=== PATIENT | female | born 1940 | race Caucasian/White ===

== ENCOUNTER → 2017-10-12 | Outpatient (CLI) | payer OTHER | END | disposition home or self-care (01) | LOC: OIH 13:21 | PROVIDERS: ATTEND Family Medicine | DX: R07.81 Pleurodynia (principal) | CPT/HCPCS: 71100 ==

== ENCOUNTER → 2017-10-26 | Outpatient (CLI) | payer OTHER | END | disposition home or self-care (01) | LOC: RAH 09:42 | PROVIDERS: ATTEND Family Medicine | DX: Z12.31 Encounter for screening mammogram for malignant neoplasm of breast (principal) | CPT/HCPCS: 77067 ==

== ENCOUNTER → 2018-10-08 | Outpatient (CLI) | payer OTHER | END | disposition home or self-care (01) | LOC: RAH 09:10 | PROVIDERS: ATTEND Physical Medicine & Rehabilitation | DX: N28.1 Cyst of kidney, acquired (principal); I70.0 Atherosclerosis of aorta | CPT/HCPCS: 74021; 76700 ==

== ENCOUNTER → 2019-03-30 | Outpatient (CLI) | payer OTHER | END | disposition home or self-care (01) | LOC: RAH 13:03 | PROVIDERS: ATTEND Family Medicine | DX: Z12.31 Encounter for screening mammogram for malignant neoplasm of breast (principal) | CPT/HCPCS: 77067 ==

== ENCOUNTER → 2019-08-31 | Outpatient (CLI) | payer OTHER | END | disposition home or self-care (01) | LOC: RAH 09:40 | PROVIDERS: ATTEND Physical Medicine & Rehabilitation | DX: M19.012 Primary osteoarthritis, left shoulder (principal); M75.112 Incomplete rotator cuff tear or rupture of left shoulder, not specified as traumatic | CPT/HCPCS: 73030 ==

== ENCOUNTER → 2019-11-01 | Outpatient (CLI) | payer OTHER ==
[~2019-11-01] MED LIST: IOHEXOL-350 50ML VIAL IV ONE
== END | disposition home or self-care (01) ==
LOC: RAH 12:32
PROVIDERS: ATTEND Physical Medicine & Rehabilitation
DX: R22.2 Localized swelling, mass and lump, trunk (principal)
CPT/HCPCS: 71270; Q9967

== ENCOUNTER → 2020-09-12 | Outpatient (CLI) | payer OTHER | END | disposition home or self-care (01) | LOC: RAH 14:28 | PROVIDERS: ATTEND Family Medicine | DX: Z12.31 Encounter for screening mammogram for malignant neoplasm of breast (principal); N64.89 Other specified disorders of breast | CPT/HCPCS: 77067 ==

== ENCOUNTER → 2020-09-19 | Outpatient (CLI) | payer OTHER | END | disposition home or self-care (01) | LOC: RAH 09:39 | PROVIDERS: ATTEND Physical Medicine & Rehabilitation | DX: M43.17 Spondylolisthesis, lumbosacral region (principal); M51.26 Other intervertebral disc displacement, lumbar region; M48.061 Spinal stenosis, lumbar region without neurogenic claudication | CPT/HCPCS: 72148 ==

== ENCOUNTER 2021-03-08 15:18 | Inpatient (IN) | payer OTHER ==
[~2021-03-08] VITALS: Ht 165.1 cm; Wt 57.8 kg
[~2021-03-08 15:18] MED LIST changes: +ENTR200C PO; +FAMO40TA75 PO; +FERR-72 PO; +GABA600T10 PO; -IOHEXOL-350 50ML VIAL IV ONE; +ONDA4TAB4 PO; +POLY17PO4 PO
[2021-03-08 15:28] VITALS: BP 137/47
[2021-03-08] MEDS ORDERED: HALOPERIDOL INJ 5 MG/ML VIAL IM SCH (16:30)
[2021-03-08 16:57] LABS: APPEARANCE,URINE Clear (CLEAR); BILIRUBIN,URINE Negative (NEGATIVE); COLOR,URINE Yellow (YELLOW); GLUCOSE, URINE (UA) Negative (NEGATIVE); KETONES,URINE Negative (NEGATIVE); LEUKOCYTE ESTERASE ,URINE Negative (NEGATIVE); NITRATE,URINE Negative (NEGATIVE); OCCULT BLOOD,URINE Moderate (NEGATIVE); PH,URINE 5.5 (5.0-8.0); PROTEIN,URINE POS 1+ mg/dL (NEGATIVE); UROBILINOGEN,URINE 0.2 mg/dL (0.2-1.0)
[2021-03-08 17:04] LABS: BACTERIA,URINE Few /HPF (None Seen); HYALINE CASTS, URINE 0-1 /LPF (0-1 /LPF); MUCUS,URINE Rare LPF (None Seen); RBC,URINE 0-1 /HPF (0-1); SQUAMOUS EPITHELIAL CELL,UR Rare /HPF (0-2); WBC,URINE 0-1 /HPF (0-1)
[2021-03-08 17:05] LABS: AMPHET/METH SCREEN,URINE NEGATIVE (NEGATIVE); BARBITURATE SCREEN, URINE NEGATIVE (NEGATIVE); BENZODIAZEPINES SCREEN,URINE NEGATIVE (NEGATIVE); CANNABINOID SCREEN,URINE NEGATIVE (NEGATIVE); COCAINE SCREEN,URINE NEGATIVE (NEGATIVE); OPIATE SCREEN,URINE NEGATIVE (NEGATIVE); PHENCYCLIDINE SCREEN,URINE NEGATIVE (NEGATIVE)
[2021-03-08 17:12] LABS: BASOPHILS % (AUTO) 0.4 % (0.0-5.0); EOSINOPHILS % (AUTO) 1.6 % (0.0-8.0); HEMATOCRIT 22.3 % (36-48); LYMPHOCYTES % (AUTO) 8.4 % (21.0-51.0); MEAN CORPUSCULAR HEMOGLOBIN 28.5 pg (27.0-33.0); MEAN CORPUSCULAR HGB CONC 30.9 g/dL (32.0-36.0); MEAN CORPUSCULAR VOLUME 92.1 fL (79-99); NEUTROPHILS % (AUTO) 83.4 % (40.0-77.0); PLATELET COUNT (AUTO) 464 K/uL (130-400); RED BLOOD CELL COUNT(AUTO) 2.42 MIL/uL (4.00-5.50); RED CELL DISTRIBUTION WIDTH 18.8 % (11.0-15.5); WHITE BLOOD COUNT (AUTO) 9.6 K/uL (4.8-10.8)
[2021-03-08 17:18] VITALS: BP 137/47
[2021-03-08 17:27] LABS: CARBON DIOXIDE 27 mmol/L (21-32); CHLORIDE 105 mmol/L (101-111); CREATININE 2.6 mg/dL (0.5-1.5); GLUCOSE,RANDOM 103 mg/dL (70-105); POTASSIUM 3.8 mmol/L (3.5-5.1); SODIUM SERUM 142 mmol/L (136-145); UREA NITROGEN, BLOOD 49 mg/dL (7-18)
[2021-03-08 17:28] LABS: GLOMERULAR FILTR. RATE CALC 19 mL/min (>60)
[2021-03-08 17:34] LABS: ALANINE AMINOTRANSFERASE 40 U/L (12-78); ALBUMIN 2.9 g/dL (3.5-5.0); ALCOHOL, BLOOD < 3 mg/dL (0-10); AMMONIA 22 umol/L (11-32); ASPARTATE AMINOTRANSFERASE 68 U/L (10-37); BILIRUBIN,TOTAL 0.3 mg/dL (0.2-1.0); TOTAL PROTEIN, SERUM 6.8 g/dL (6.0-8.3)
[2021-03-08 17:37] LABS: ACETAMINOPHEN < 1 mcg/mL (10-30); SALICYLATE < 2.8 mg/dL (2.8-20.0)
[2021-03-08 17:42] LABS: B-TYPE NATRIURETIC PEPTIDE 348 pg/mL (0-100)
[2021-03-08] MEDS ORDERED: 0.9%NACL 1000ML 1,000 ML IV ONE (18:00)
[2021-03-08 18:38] VITALS: BP 138/52
[2021-03-08 19:05] VITALS: BP 88/37
[2021-03-08 19:57] VITALS: BP 88/38
[2021-03-08] MEDS ORDERED: ACETAMINOPHEN 325 MG TAB PO PRN (20:00)
[2021-03-09] VITALS (20 sets, daily range): BP systolic 74–129; BP diastolic 28–67
[2021-03-09 01:48] LABS: HEMATOCRIT 26.1 % (36-48)
[2021-03-09] MEDS: NOREPINEPHRINE 4MG/NS 250ML 250 ML IV SCH ×2 (02:09→08:42)
[2021-03-09] MEDS ORDERED: ALBUMIN (HUMAN) 25% 100 ML IV PRN (05:00)
[2021-03-09 07:56] LABS: HEMATOCRIT 28.6 % (36-48); MEAN CORPUSCULAR HEMOGLOBIN 28.5 pg (27.0-33.0); MEAN CORPUSCULAR HGB CONC 32.2 g/dL (32.0-36.0); MEAN CORPUSCULAR VOLUME 88.5 fL (79-99); RED BLOOD CELL COUNT(AUTO) 3.23 MIL/uL (4.00-5.50); RED CELL DISTRIBUTION WIDTH 18.4 % (11.0-15.5); WHITE BLOOD COUNT (AUTO) 9.4 K/uL (4.8-10.8)
[2021-03-09 08:20] LABS: ALBUMIN 2.8 g/dL (3.5-5.0); BILIRUBIN,TOTAL 0.5 mg/dL (0.2-1.0); CREATININE 2.4 mg/dL (0.5-1.5); POTASSIUM 4.1 mmol/L (3.5-5.1); TOTAL PROTEIN, SERUM 6.4 g/dL (6.0-8.3)
[2021-03-09] MEDS ORDERED: VASOPRESSIN 20 UNITS/ML 1ML VIAL ONE (08:48)
[2021-03-09] MEDS ORDERED: 0.9%NACL 100ML 100 ML ONE (08:49)
[2021-03-09] MEDS ORDERED: FAMOTIDINE 20MG TAB PO SCH (09:00)
[2021-03-09] MEDS: VASOPRESSIN 20 UNITS in 0.9%NACL 100ML 100 ML IV SCH (09:24)
[2021-03-09] MEDS ORDERED: VANCOMYCIN PROTOCOL PER PHARMACY IV SCH (13:00)
[2021-03-09] MEDS ORDERED: 0.9%NACL 1000ML 1,000 ML IV SCH (13:00)
[2021-03-09] MEDS ORDERED: RENAL DOSE IV SCH (13:00)
[2021-03-09] MEDS: 0.9%NACL 1000ML 1,000 ML IV SCH ×2 (13:11→13:23)
[2021-03-09] MEDS: MEROPENEM 500 MG VIAL IVP SCH (13:21)
[2021-03-09 13:53] LABS: CREATININE,URINE RANDOM 43 mg/dL (30-135); SODIUM,URINE RANDOM 80 mmol/l (40-220)
[2021-03-09] MEDS ORDERED: VANCOMYCIN 1G/250ML KIT 250 ML IV SCH (14:00)
[2021-03-09 16:40] LABS: HEMATOCRIT 28.2 % (36-48)
[2021-03-09 17:51] LABS: CREATININE 2.4 mg/dL (0.5-1.5); POTASSIUM 4.1 mmol/L (3.5-5.1)
[2021-03-09] MEDS ORDERED: ALPRAZOLAM 1 MG TAB ONE (19:18)
[2021-03-09] MEDS: ALPRAZOLAM 0.25 MG TABLET PO PRN (19:42)
[2021-03-09 21:33] LABS: HEMATOCRIT 27.7 % (36-48)
[2021-03-09] MEDS: PANTOPRAZOLE 40 MG/VIAL IVP SCH (21:47)
[2021-03-10] VITALS (19 sets, daily range): BP systolic 55–125; BP diastolic 35–56
[2021-03-10] MEDS ORDERED: LORAZEPAM 2 MG/ML 1 ML VIAL IVP ONE (00:30)
[2021-03-10] MEDS ORDERED: LORAZEPAM 2 MG/ML 1 ML VIAL ONE (00:34)
[2021-03-10] MEDS: MEROPENEM 500 MG VIAL IVP SCH ×2 (01:54→13:28)
[2021-03-10 06:06] LABS: BASOPHILS % (AUTO) 0.5 % (0.0-5.0); EOSINOPHILS % (AUTO) 1.5 % (0.0-8.0); HEMATOCRIT 27.7 % (36-48); LYMPHOCYTES % (AUTO) 11.4 % (21.0-51.0); MEAN CORPUSCULAR HEMOGLOBIN 28.3 pg (27.0-33.0); MEAN CORPUSCULAR HGB CONC 30.3 g/dL (32.0-36.0); MEAN CORPUSCULAR VOLUME 93.3 fL (79-99); MONOCYTES % (AUTO) 4.6 % (3.0-13.0); NEUTROPHILS % (AUTO) 81.4 % (40.0-77.0); PLATELET COUNT (AUTO) 421 K/uL (130-400); RED BLOOD CELL COUNT(AUTO) 2.97 MIL/uL (4.00-5.50); RED CELL DISTRIBUTION WIDTH 18.8 % (11.0-15.5); WHITE BLOOD COUNT (AUTO) 9.7 K/uL (4.8-10.8)
[2021-03-10 06:20] LABS: % IRON SATURATION 22.4 % (22-44)
[2021-03-10 07:32] LABS: ALBUMIN 2.9 g/dL (3.5-5.0); BILIRUBIN,TOTAL 0.4 mg/dL (0.2-1.0); CREATININE 2.1 mg/dL (0.5-1.5); POTASSIUM 4.3 mmol/L (3.5-5.1); THYROID STIMULATING HORMONE 1.24 uIU/mL (0.36-3.74); TOTAL PROTEIN, SERUM 6.4 g/dL (6.0-8.3)
[2021-03-10] MEDS: PANTOPRAZOLE 40 MG/VIAL IVP SCH ×2 (08:12→20:47)
[2021-03-10 09:20] LABS: HEMATOCRIT 28.3 % (36-48)
[2021-03-10] MEDS: HYDROCORTISONE SOD SUCCINATE 100 MG/2 ML VIAL IV SCH ×2 (10:07→17:16)
[2021-03-10] MEDS: MIDODRINE HCL 5 MG TABLET PO SCH ×2 (13:28→20:47)
[2021-03-10] MEDS ORDERED: COMPOUND IV MISC 1 EACH IVSOLN MISC PRN (13:30)
[2021-03-10] MEDS: IRON SUCROSE COMPLEX 100 MG in 0.9%NACL 50ML 50 ML IV SCH (14:31)
[2021-03-10 15:01] LABS: HEMATOCRIT 25.7 % (36-48)
[2021-03-10] MEDS ORDERED: VASOPRESSIN 20 UNITS/ML 1ML VIAL ONE (15:19)
[2021-03-10] MEDS: VASOPRESSIN 20 UNITS in 0.9%NACL 100ML 100 ML IV SCH (15:40)
[2021-03-10 21:29] LABS: HEMATOCRIT 29.7 % (36-48)
[2021-03-10] MEDS: ALPRAZOLAM 0.25 MG TABLET PO PRN (21:59)
[2021-03-11] VITALS (17 sets, daily range): BP systolic 65–143; BP diastolic 30–87
[2021-03-11] MEDS ORDERED: LORAZEPAM 2 MG/ML 1 ML VIAL ONE (02:24)
[2021-03-11] MEDS ORDERED: LORAZEPAM 2 MG/ML 1 ML VIAL IVP ONE (02:30)
[2021-03-11] MEDS: MEROPENEM 500 MG VIAL IVP SCH ×2 (02:34→15:07)
[2021-03-11] MEDS: HYDROCORTISONE SOD SUCCINATE 100 MG/2 ML VIAL IV SCH ×3 (02:34→17:45)
[2021-03-11] MEDS ORDERED: PROPOFOL 10 MG/ML 20ML VIAL IV ONE (07:49)
[2021-03-11] MEDS ORDERED: LIDOCAINE PF 100MG/5ML (2%) SYRINGE 5ML ONE (07:49)
[2021-03-11] MEDS: MIDODRINE HCL 5 MG TABLET PO SCH ×3 (09:00→21:00)
[2021-03-11] MEDS: PANTOPRAZOLE 40 MG/VIAL IVP SCH ×2 (09:14→21:22)
[2021-03-11 09:51] LABS: BASOPHILS % (AUTO) 0.3 % (0.0-5.0); EOSINOPHILS % (AUTO) 1.6 % (0.0-8.0); HEMATOCRIT 26.2 % (36-48); MEAN CORPUSCULAR HEMOGLOBIN 28.5 pg (27.0-33.0); MEAN CORPUSCULAR HGB CONC 31.7 g/dL (32.0-36.0); NEUTROPHILS % (AUTO) 82.4 % (40.0-77.0); PLATELET COUNT (AUTO) 477 K/uL (130-400); RED BLOOD CELL COUNT(AUTO) 2.91 MIL/uL (4.00-5.50); RED CELL DISTRIBUTION WIDTH 18.6 % (11.0-15.5); WHITE BLOOD COUNT (AUTO) 10.5 K/uL (4.8-10.8)
[2021-03-11 10:08] LABS: ALBUMIN 2.7 g/dL (3.5-5.0); BILIRUBIN,TOTAL 0.3 mg/dL (0.2-1.0); CREATININE 1.8 mg/dL (0.5-1.5); POTASSIUM 3.9 mmol/L (3.5-5.1); TOTAL PROTEIN, SERUM 6.3 g/dL (6.0-8.3)
[2021-03-11] MEDS ORDERED: PHARMACY COMMUNICATION MISC SCH (11:00)
[2021-03-11] MEDS: DEXTROSE 5%-WATER 1,000 ML IV SCH (11:59)
[2021-03-11] MEDS ORDERED: 0.9%NACL 50ML 50 ML IV ONE (14:46)
[2021-03-11 15:20] LABS: HEMATOCRIT 27.1 % (36-48)
[2021-03-11 15:35] LABS: INR 1.03 (0.85-1.15); PROTHROMBIN TIME 11.2 SEC (9.6-11.6)
[2021-03-11 15:36] LABS: PARTIAL THROMBOPLASTIN TIME 26.4 SEC (26.3-35.5)
[2021-03-11] MEDS: DRONABINOL 2.5 MG CAP PO SCH (15:51)
[2021-03-11] MEDS: IRON SUCROSE COMPLEX 100 MG in 0.9%NACL 50ML 50 ML IV SCH (15:53)
[2021-03-11] MEDS ORDERED: NOREPINEPHRINE 4MG/NS 250ML 250 ML IV SCH (20:00)
[2021-03-11 20:25] LABS: HEMATOCRIT 28.6 % (36-48)
[2021-03-11] MEDS: TRAZODONE HCL 50 MG TAB PO SCH (21:22)
[2021-03-12] VITALS (19 sets, daily range): BP systolic 95–141; BP diastolic 37–80
[2021-03-12] MEDS: MEROPENEM 500 MG VIAL IVP SCH ×2 (01:00→14:51)
[2021-03-12 02:05] LABS: HEMATOCRIT 28.5 % (36-48)
[2021-03-12] MEDS: HYDROCORTISONE SOD SUCCINATE 100 MG/2 ML VIAL IV SCH ×3 (03:08→18:30)
[2021-03-12] MEDS: DRONABINOL 2.5 MG CAP PO SCH ×2 (07:30→18:03)
[2021-03-12] MEDS: DEXTROSE 5%-WATER 1,000 ML IV SCH ×2 (08:50→12:58)
[2021-03-12 08:54] LABS: BASOPHILS % (AUTO) 0.2 % (0.0-5.0); HEMATOCRIT 30.7 % (36-48); LYMPHOCYTES % (AUTO) 10.3 % (21.0-51.0); MEAN CORPUSCULAR HEMOGLOBIN 28.5 pg (27.0-33.0); MEAN CORPUSCULAR HGB CONC 30.6 g/dL (32.0-36.0); MONOCYTES % (AUTO) 4.9 % (3.0-13.0); NEUTROPHILS % (AUTO) 82.9 % (40.0-77.0); PLATELET COUNT (AUTO) 538 K/uL (130-400); RED CELL DISTRIBUTION WIDTH 19.3 % (11.0-15.5); WHITE BLOOD COUNT (AUTO) 12.1 K/uL (4.8-10.8)
[2021-03-12] MEDS: ASCORBIC ACID 500 MG TAB PO SCH (09:00)
[2021-03-12] MEDS: ZINC SULFATE 220 CAPSULE PO SCH (09:00)
[2021-03-12 09:18] LABS: INR 1.01 (0.85-1.15)
[2021-03-12 09:19] LABS: PARTIAL THROMBOPLASTIN TIME 27.6 SEC (26.3-35.5)
[2021-03-12 09:30] LABS: ALBUMIN 2.8 g/dL (3.5-5.0); BILIRUBIN,TOTAL 0.3 mg/dL (0.2-1.0); CREATININE 1.7 mg/dL (0.5-1.5); POTASSIUM 3.6 mmol/L (3.5-5.1); TOTAL PROTEIN, SERUM 6.5 g/dL (6.0-8.3)
[2021-03-12] MEDS: MIDODRINE HCL 5 MG TABLET PO SCH ×3 (11:20→20:46)
[2021-03-12] MEDS: IRON SUCROSE COMPLEX 100 MG in 0.9%NACL 50ML 50 ML IV SCH (11:20)
[2021-03-12] MEDS: PANTOPRAZOLE 40 MG/VIAL IVP SCH ×2 (11:20→20:46)
[2021-03-12] MEDS: TRAZODONE HCL 50 MG TAB PO SCH (20:46)
[2021-03-13] VITALS (25 sets, daily range): BP systolic 113–151; BP diastolic 50–84
[2021-03-13] MEDS: MEROPENEM 500 MG VIAL IVP SCH ×2 (01:00→12:28)
[2021-03-13] MEDS: HYDROCORTISONE SOD SUCCINATE 100 MG/2 ML VIAL IV SCH ×2 (01:30→08:46)
[2021-03-13 07:24] LABS: MEAN CORPUSCULAR HEMOGLOBIN 28.8 pg (27.0-33.0); MEAN CORPUSCULAR HGB CONC 31.3 g/dL (32.0-36.0); PLATELET COUNT (AUTO) 538 K/uL (130-400); RED BLOOD CELL COUNT(AUTO) 3.37 MIL/uL (4.00-5.50); RED CELL DISTRIBUTION WIDTH 19.3 % (11.0-15.5); WHITE BLOOD COUNT (AUTO) 11.5 K/uL (4.8-10.8)
[2021-03-13] MEDS ORDERED: LACTULOSE 20 GM/30 ML UDCUP PO PRN (07:30)
[2021-03-13] MEDS: DRONABINOL 2.5 MG CAP PO SCH (07:31)
[2021-03-13 07:34] LABS: CREATININE 1.4 mg/dL (0.5-1.5)
[2021-03-13 07:58] LABS: EOSINOPHILS % (MANUAL) 1 % (1-6); LYMPHOCYTES % (MANUAL) 18 % (22-44); MAN.DIFF COMMENT-IMPRESSION MANUAL DIFFERENTIAL; MONOCYTES % (MANUAL) 2 % (2-9); PLATELET MORPHOLOGY COMMENT MARKED INCREASE; SEGMENTED NEUTROPHILS % 79 % (40-70)
[2021-03-13] MEDS: MIDODRINE HCL 5 MG TABLET PO SCH ×3 (08:46→20:14)
[2021-03-13] MEDS: ZINC SULFATE 220 CAPSULE PO SCH (08:46)
[2021-03-13] MEDS: PANTOPRAZOLE 40 MG/VIAL IVP SCH (08:46)
[2021-03-13] MEDS: ASCORBIC ACID 500 MG TAB PO SCH (08:46)
[2021-03-13] MEDS: IRON SUCROSE COMPLEX 100 MG in 0.9%NACL 50ML 50 ML IV SCH (09:00)
[2021-03-13] MEDS ORDERED: PROPOFOL 10 MG/ML 20ML VIAL IV ONE (11:10)
[2021-03-13] MEDS ORDERED: LIDOCAINE PF 100MG/5ML (2%) SYRINGE 5ML ONE (11:10)
[2021-03-13] MEDS ORDERED: PEG 3350/NA SULF,BICARB,CL/KCL 4000 ML SOLN PO SCH (12:00)
[2021-03-13] MEDS ORDERED: 0.9%NACL 50ML 50 ML IV ONE (12:35)
[2021-03-13] MEDS: DEXTROSE 5%-WATER 1,000 ML IV SCH ×2 (15:08→23:00)
[2021-03-13] MEDS ORDERED: SOLU-MEDROL 125MG VIAL ONE (17:52)
[2021-03-13] MEDS: TRAZODONE HCL 50 MG TAB PO SCH (20:14)
[2021-03-13] MEDS: PANTOPRAZOLE 40 MG TAB DR PO SCH (20:14)
[2021-03-13] MEDS ORDERED: BENZONATATE 100 MG CAPSULE PO PRN (21:30)
[2021-03-14] VITALS (8 sets, daily range): BP systolic 104–154; BP diastolic 61–80
[2021-03-14] MEDS: MEROPENEM 500 MG VIAL IVP SCH ×2 (00:53→13:08)
[2021-03-14] MEDS: DEXTROSE 5%-WATER 1,000 ML IV SCH (00:53)
[2021-03-14] MEDS: HYDROCORTISONE SOD SUCCINATE 100 MG/2 ML VIAL IV SCH ×3 (00:53→16:53)
[2021-03-14 04:56] LABS: BASOPHILS % (AUTO) 0.2 % (0.0-5.0); HEMATOCRIT 31.8 % (36-48); LYMPHOCYTES % (AUTO) 6.1 % (21.0-51.0); MEAN CORPUSCULAR HEMOGLOBIN 28.8 pg (27.0-33.0); MEAN CORPUSCULAR HGB CONC 30.5 g/dL (32.0-36.0); MEAN CORPUSCULAR VOLUME 94.4 fL (79-99); MONOCYTES % (AUTO) 1.7 % (3.0-13.0); NEUTROPHILS % (AUTO) 91.1 % (40.0-77.0); PLATELET COUNT (AUTO) 535 K/uL (130-400); RED BLOOD CELL COUNT(AUTO) 3.37 MIL/uL (4.00-5.50); RED CELL DISTRIBUTION WIDTH 18.9 % (11.0-15.5)
[2021-03-14] MEDS: DRONABINOL 2.5 MG CAP PO SCH ×2 (06:21→16:53)
[2021-03-14 06:27] LABS: ALBUMIN 2.6 g/dL (3.5-5.0); BILIRUBIN,TOTAL 0.3 mg/dL (0.2-1.0); CREATININE 1.7 mg/dL (0.5-1.5); MAGNESIUM 2.2 mg/dL (1.80-2.40); POTASSIUM 3.9 mmol/L (3.5-5.1); TOTAL PROTEIN, SERUM 6.5 g/dL (6.0-8.3)
[2021-03-14] MEDS: PANTOPRAZOLE 40 MG TAB DR PO SCH ×2 (08:45→20:42)
[2021-03-14] MEDS: IRON SUCROSE COMPLEX 100 MG in 0.9%NACL 50ML 50 ML IV SCH (08:45)
[2021-03-14] MEDS: MIDODRINE HCL 5 MG TABLET PO SCH ×3 (08:45→20:42)
[2021-03-14] MEDS: ZINC SULFATE 220 CAPSULE PO SCH (08:45)
[2021-03-14] MEDS: ASCORBIC ACID 500 MG TAB PO SCH (08:45)
[2021-03-14] MEDS: TRAZODONE HCL 50 MG TAB PO SCH (20:42)
[2021-03-15] MEDS: MEROPENEM 500 MG VIAL IVP SCH ×2 (02:09→12:39)
[2021-03-15 03:28] VITALS: BP 123/69
[2021-03-15] MEDS: DRONABINOL 2.5 MG CAP PO SCH ×2 (06:15→16:30)
[2021-03-15 08:00] VITALS: BP 143/78
[2021-03-15] MEDS: MIDODRINE HCL 5 MG TABLET PO SCH ×2 (09:00→13:39)
[2021-03-15] MEDS ORDERED: PREDNISONE 20 MG TABLET PO SCH (09:00)
[2021-03-15] MEDS: PANTOPRAZOLE 40 MG TAB DR PO SCH (10:16)
[2021-03-15] MEDS: ASCORBIC ACID 500 MG TAB PO SCH (10:16)
[2021-03-15] MEDS: ZINC SULFATE 220 CAPSULE PO SCH (10:16)
[2021-03-15] MEDS: IRON SUCROSE COMPLEX 100 MG in 0.9%NACL 50ML 50 ML IV SCH (10:16)
[2021-03-15 12:00] VITALS: BP 159/89
[2021-03-15 16:00] VITALS: BP 154/93
[2021-03-17] MEDS ORDERED: PREDNISONE 10 MG TABLET PO SCH (09:00)
== END 2021-03-15 19:00 | DRG 871 ==
LOC: EDH 15:18 → EDHIP 19:12 → 3CH 03-13 15:48
PROVIDERS: ADMIT Internal Medicine; ATTEND Internal Medicine
PROC: 30233N1 Transfusion of Nonautologous Red Blood Cells into Peripheral Vein, Percutaneous Approach (ICD-10-PCS; principal; 2021-03-08)
PROC: 5A0935A Assistance with Respiratory Ventilation, Less than 24 Consecutive Hours, High Flow/Velocity Cannula (ICD-10-PCS; 2021-03-10)
PROC: 0DB68ZX Excision of Stomach, Via Natural or Artificial Opening Endoscopic, Diagnostic (ICD-10-PCS; 2021-03-13)
DX: A41.9 Sepsis, unspecified organism (principal); J18.9 Pneumonia, unspecified organism; R65.21 Severe sepsis with septic shock; I50.31 Acute diastolic (congestive) heart failure; G92 Toxic encephalopathy; I21.A1 Myocardial infarction type 2; N17.9 Acute kidney failure, unspecified; I13.0 Hypertensive heart and chronic kidney disease with heart failure and stage 1 through stage 4 chronic kidney disease, or unspecified chronic kidney disease; D62 Acute posthemorrhagic anemia; E87.0 Hyperosmolality and hypernatremia; E87.1 Hypo-osmolality and hyponatremia; M62.82 Rhabdomyolysis; D84.9 Immunodeficiency, unspecified; K29.70 Gastritis, unspecified, without bleeding; N18.9 Chronic kidney disease, unspecified; E87.6 Hypokalemia; I25.10 Atherosclerotic heart disease of native coronary artery without angina pectoris; Z20.822 Contact with and (suspected) exposure to COVID-19; E86.0 Dehydration; E86.1 Hypovolemia; E87.8 Other disorders of electrolyte and fluid balance, not elsewhere classified; G24.9 Dystonia, unspecified; I95.89 Other hypotension; R29.6 Repeated falls; R62.7 Adult failure to thrive; S00.81XA Abrasion of other part of head, initial encounter; W19.XXXA Unspecified fall, initial encounter; Z68.21 Body mass index [BMI] 21.0-21.9, adult; Y93.89 Activity, other specified; Y92.89 Other specified places as the place of occurrence of the external cause; Y99.8 Other external cause status; Z79.899 Other long term (current) drug therapy; I25.2 Old myocardial infarction; Z85.118 Personal history of other malignant neoplasm of bronchus and lung; Z85.3 Personal history of malignant neoplasm of breast; Z90.2 Acquired absence of lung [part of]
CPT/HCPCS: 36415; 43239; 70450; 70551; 71045; 76770; 78580; 80048; 80053; 80202; 80305; 81001; 82140; 82270; 82533; 82550; 82570; 82728; 82746; 82948; 83540; 83550; 83605; 83735; 83874; 83880; 84100; 84145; 84300; 84443; 84484; 85014; 85018; 85025; 85027; 85045; 85378; 85384; 85610; 85730; 86850; 86900; 86901; 86923; 87040; 87088; 87635; 88305; 88342; 93005; 93306; 93356; 93970; 97039; A9540; C9113; G0378; G0481; J1630; J1720; J1756; J2001; J2060; J2185; J2704; J2930; J3370; J3490; J7030; J7070; P9016; P9046; Q0167